=== PATIENT | male | born 1985 | race Caucasian/White ===

== ENCOUNTER 2023-05-03 02:13 | Emergency (ER) | payer OTHER ==
[~2023-05-03] VITALS: Ht 182.9 cm; Wt 79.5 kg
[2023-05-03 02:27] VITALS: BP 123/73; PULSE 58; RESP 20; TEMP 97.4; O2SAT 98
[2023-05-03] MEDS ORDERED: PENI500T2 PO (03:24)
[2023-05-03] MEDS ORDERED: BENZOCAINE (DENTAL) 20 % SPRAY 60ML MT ONE (03:30)
[2023-05-03] MEDS ORDERED: KETOROLAC TROMETH 60MG/2ML VIAL IM ONE (03:30)
== END 2023-05-03 03:53 | disposition home or self-care (01) ==
LOC: ER 02:13
DX: K08.89 Other specified disorders of teeth and supporting structures (principal); F17.210 Nicotine dependence, cigarettes, uncomplicated; Z79.2 Long term (current) use of antibiotics
CPT/HCPCS: 96372; 99283; J1885

== ENCOUNTER 2023-06-12 22:38 | Emergency (ER) | payer OTHER ==
[~2023-06-12] VITALS: Ht 182.9 cm; Wt 79.9 kg
[~2023-06-12 22:38] MED LIST: PENI500T2 PO
[2023-06-13 04:07] VITALS: BP 121/74; PULSE 71; RESP 20; TEMP 97.9
[2023-06-13] MEDS ORDERED: AMOX875T4 PO (04:24)
[2023-06-13] MEDS ORDERED: IBUP-1456 PO (04:24)
[2023-06-13 04:28] VITALS: O2SAT 97
[2023-06-13] MEDS: BENZOCAINE (DENTAL) 20 % SPRAY 60ML MT ONE (04:44)
[2023-06-13] MEDS: KETOROLAC TROMETH 60MG/2ML VIAL IM ONE (04:45)
[2023-06-13] MEDS: cefTRIAXone SOD 1,000 MG VL IM ONE (04:45)
== END 2023-06-13 05:00 | disposition home or self-care (01) ==
LOC: ER 22:38
DX: S02.5XXA Fracture of tooth (traumatic), initial encounter for closed fracture (principal); F17.210 Nicotine dependence, cigarettes, uncomplicated; Z79.1 Long term (current) use of non-steroidal anti-inflammatories (NSAID); Z79.2 Long term (current) use of antibiotics; X58.XXXA Exposure to other specified factors, initial encounter; Y93.89 Activity, other specified; Y92.89 Other specified places as the place of occurrence of the external cause; Y99.8 Other external cause status
CPT/HCPCS: 96372; 99284; J0696; J1885

== ENCOUNTER 2023-08-24 11:48 | Emergency (ER) | payer OTHER ==
[~2023-08-24] VITALS: Ht 182.9 cm; Wt 80.5 kg
[~2023-08-24 11:48] MED LIST changes: +AMOX875T4 PO; +IBUP-1456 PO
[2023-08-24] MEDS ORDERED: AUG875T PO (14:36)
[2023-08-24] MEDS ORDERED: HYDR-4798 PO (14:36)
[2023-08-24 14:49] VITALS: BP 109/70; PULSE 57; RESP 18; TEMP 98.9; O2SAT 99
== END 2023-08-24 14:50 | disposition home or self-care (01) ==
LOC: ER 11:48
DX: K03.81 Cracked tooth (principal); K02.9 Dental caries, unspecified; K04.7 Periapical abscess without sinus; F17.210 Nicotine dependence, cigarettes, uncomplicated; F12.10 Cannabis abuse, uncomplicated

== ENCOUNTER 2023-09-15 21:23 | Emergency (ER) | payer OTHER ==
[~2023-09-15] VITALS: Ht 193 cm; Wt 77.2 kg
[~2023-09-15 21:23] MED LIST changes: +AUG875T PO; +HYDR-4798 PO
[2023-09-16] MEDS ORDERED: AUG875T PO (01:16)
[2023-09-16 01:27] VITALS: BP 110/57; PULSE 61; RESP 18; TEMP 97.9; O2SAT 97
[2023-09-16] MEDS: KETOROLAC TROMETH 60MG/2ML VIAL IM ONE (01:44)
== END 2023-09-16 01:45 | disposition home or self-care (01) ==
LOC: ER 21:23
DX: K08.89 Other specified disorders of teeth and supporting structures (principal); F17.210 Nicotine dependence, cigarettes, uncomplicated; F12.10 Cannabis abuse, uncomplicated
CPT/HCPCS: 96372; 99283; J1885